=== PATIENT | female | born 1935 | race Caucasian/White ===

== ENCOUNTER 2018-01-18 06:15 | Day surgery (SDC) | payer MEDICARE, BC ==
[2018-01-18] MEDS: SOD CHLORIDE 0.9% 1,000 ML IV (07:23)
[2018-01-18] MEDS: PROPARACAINE 0.5% 15 ML OPH OPER (07:24)
[2018-01-18] MEDS: PHENYLephrine 2.5% 15 ML OPH OPER (07:25)
[2018-01-18] MEDS: MOXIFLOXACIN 0.5% 3 ML OPH OPER (07:25)
[2018-01-18] MEDS: TROPICAMIDE 1% 3 ML OPH OPER (07:25)
[2018-01-18] MEDS: PREDNISOLONE ACET 1% 5 ML OPH OPER (07:25)
[2018-01-18] MEDS ORDERED: LIDOCAINE 1% (MPF) 10 ML INJ (07:44)
[2018-01-18] MEDS ORDERED: TOBRAMYCIN/DEXAMETH 3.5 GM OPH OINT (07:44)
[2018-01-18] MEDS ORDERED: EPINEPHrine 1 MG INJ (07:45)
[2018-01-18] MEDS ORDERED: TETRACAINE 0.5% 4 ML OPH (07:45)
[2018-01-18] MEDS ORDERED: SODIUM HYALURONATE 14 MG/ML SYG (07:49)
[2018-01-18] MEDS: SODIUM HYALURONATE 14 MG/ML SYG IO (08:10)
[2018-01-18] MEDS: LIDOCAINE 1% (MPF) 5 ML VIAL INJ (08:10)
[2018-01-18] MEDS: TETRACAINE 0.5% 4 ML OPH RIGHT EYE (08:34)
[2018-01-18] MEDS ORDERED: hydrALAzine 20 MG INJ (08:45)
[2018-01-18] MEDS ORDERED: MEPERIDINE 25 MG INJ IV (09:30)
[2018-01-18] MEDS ORDERED: OXYCODONE/ACETAMINOPHEN (5/325) TAB PO ×2 (09:30)
[2018-01-18] MEDS ORDERED: MIDAZOLAM 1 MG/ML 2 ML INJ IV (09:30)
[2018-01-18] MEDS ORDERED: LABETALOL HCL 20MG INJ IV (09:30)
[2018-01-18] MEDS ORDERED: FENTAnyl 50 MCG/ML VIAL IV ×3 (09:30)
[2018-01-18] MEDS ORDERED: hydrALAzine 20 MG INJ IV (09:30)
[2018-01-18] MEDS ORDERED: DIPHENHYDRAMINE 50 MG INJ IV (09:30)
[2018-01-18] MEDS ORDERED: METOCLOPRAMIDE 10 MG INJ IV (09:30)
[2018-01-18] MEDS ORDERED: EPHEDrine SULFATE 50 MG/5 ML SYG IV (09:30)
[2018-01-18] MEDS ORDERED: ONDANSETRON 4 MG INJ IV (09:30)
== END 2018-01-18 10:27 | disposition home or self-care (01) ==
LOC: SDS 06:15
DX: H25.11 Age-related nuclear cataract, right eye (principal); I10 Essential (primary) hypertension; E78.5 Hyperlipidemia, unspecified
CPT/HCPCS: 66984